=== PATIENT | male | born 1935 ===

== ENCOUNTER 2024-12-24 09:16 | Inpatient (IN) ==
--- NOTE | 2024-10-20 10:13 | PAT Medication Instructions ---
Medication Instructions Date of Service October 20, 2024 Home Medications aspirin 81 mg tablet,delayed release 81 mg PO Q2D cholecalciferol (vitamin D3) 25 mcg (1,000 unit) capsule (Vitamin D3) 0 mcg PO DAILY cyanocobalamin (vitamin B-12) 1,000 mcg tablet (Vitamin B-12) 0 mcg PO DAILY lorazepam 2 mg tablet 2 mg PO HS losartan 25 mg tablet 25 mg PO HS metoprolol succinate 25 mg tablet,extended release 24 hr 12.5 mg PO HS rosuvastatin 10 mg tablet 10 mg PO HS ASK your prescriber and surgeon aspirin 81 mg tablet,delayed release 81 mg PO Q2D DO NOT take the morning of surgery cholecalciferol (vitamin D3) 25 mcg (1,000 unit) capsule (Vitamin D3) 0 mcg PO DAILY cyanocobalamin (vitamin B-12) 1,000 mcg tablet (Vitamin B-12) 0 mcg PO DAILY Take evening before surgery lorazepam 2 mg tablet 2 mg PO HS losartan 25 mg tablet 25 mg PO HS metoprolol succinate 25 mg tablet,extended release 24 hr 12.5 mg PO HS rosuvastatin 10 mg tablet 10 mg PO HS Other Notes NOTHING TO EAT OR DRINK AFTER MIDNIGHT. If you have any questions please call us at [phone] or [phone] or [phone] or [phone]
--- NOTE | 2024-10-30 12:53 | Anesthesiology Consultation ---
Date of Service October 30, 2024 Assessment & Plan (1) Encounter for pre-operative examination: Plan - awaiting surgeon ordered medical clearance, Dr. Carito Freeman [facility] [place] and 11/06/2024 echocardiogram; will request 03/2024 carotid doppler from cardiology. - cardiology office visit 09/15/24: "...functional class II shortness of breath and fatigue...echocardiogram re: MR, TR, CAD, preop for back surgery. Lexiscan nuclear stress test to evaluate for myocardial ischemia..." Subsequent nuclear stress echo 10/01/24: "...negative...no evidence of myocardial ischemia or infarction...cardiac clearance for this patient is moderate cardiac risk..." Chart Review Chart Review: Pending: Refer to Additional Notes / Consult section and Patient seen in Pre Admission Testing Teaching & Discussion Pre-Anesthesia Teaching/Discussion Notes: Instructed NPO after midnight before surgery, except medications with 15 cc of water. Medication instructions provided according to the PAT guidelines. History Surgery Operation Date: 11/21/24 11:35 Proposed Procedures p L4-L5 Decompression and Fusion - Frederic Herrmann DO Height/Weight Height: 5 ft 9.5 in Weight: 84.3 kg Allergies Allergy/AdvReac Type Severity Reaction Status Date / Time No Known Allergies Allergy Verified 10/17/24 09:57 Medications Home Medications Medication Instructions Recorded Confirmed Last Taken aspirin 81 mg tablet,delayed 81 mg PO Q2D 10/17/24 10/17/24 Unknown release cholecalciferol (vitamin D3) 25 0 mcg PO DAILY 10/17/24 10/17/24 Unknown mcg (1,000 unit) capsule (Vitamin D3) cyanocobalamin (vitamin B-12) 0 mcg PO DAILY 10/17/24 10/17/24 Unknown 1,000 mcg tablet (Vitamin B-12) lorazepam 2 mg tablet 2 mg PO HS 10/17/24 10/17/24 Unknown losartan 25 mg tablet 25 mg PO HS 10/17/24 10/17/24 Unknown metoprolol succinate 25 mg 12.5 mg PO HS 10/17/24 10/17/24 Unknown tablet,extended release 24 hr rosuvastatin 10 mg tablet 10 mg PO HS 10/17/24 10/17/24 Unknown Past Medical History Medical History (Updated 10/30/24 @ 14:00 by Ayesha Mckinnon PA-C) CAD (coronary artery disease) s/p 1 stent in 2022 History of anxiety History of myocardial infarction (2022) [facility], hx cath x2 ...tried to dissolve blockage with medication (1st cath) and unsuccessful, went back in and placed stent. HTN (hypertension) borderline Hyperlipidemia borderline Peripheral vascular disease 50-75% moderate peripheral vascular disease of the left distal posterior tibial artery and mild peripheral vascular disease of the legs bilaterally Situational depression hx Spinal stenosis Unsteady gait due to back issue per pt, ambulates with rolling walker Patient denies h/o stroke, seizures, heart failure, DM, blood clots/DVTs or blood transfusions. Exercise / Class Metabolic Activity III < 4 Walking/Shop/Light housework (ambulates with walker, denies chest discomfort or shortness of breath with usual activities) Past Surgical History Surgical History History of appendectomy History of cardiac cath (2022) x2 hx [place] 2022 - [facility]. Stent x1. History of colonoscopy History of femur fracture (2022) [place]/screws-left History of tonsillectomy and adenoidectomy History of tooth extraction teeth removed under local. Past Anesthesia History No Hx of Anesthesia Complications and No Family Hx of Anesthesia Complications History of PONV No Hx of PONV and No Hx of Motion Sickness Social History Smoking Status: Former smoker Do You Dip or Chew Tobacco: No Smoking End Date: 45 yr ago, mostly cigs/ ? brief with pipe. Hx Alcohol Use: Yes alcohol intake frequency: holidays/special occasions only Hx Substance Use: No substance use type: does not use Review of Systems Patient denies chest pain, shortness of breath, dyspnea on exertion, snoring, witnessed apneas, reflux, fever, chills, cough, wheezing, or palpitations. Physical Exam Vital Signs Vitals BP 126/71 P 72 TEMP 97.9 SP02 95% on RA RESP 18 Physical Patient resting comfortably in chair in no acute distress, alert and oriented, responding appropriately throughout visit Full cervical extension range of motion without pain TMD 3.5 finger breadths Mallampati Score 2 Dentition: full upper denture and partial lower denture Lungs: normal respiratory effort. Good air movement, clear throughout to auscultation, no adventitious breath sounds Cardiac: regular rate and rhythm, no murmurs noted Carotid arteries: negative bruit bilat Lab Results Anesthesia Preop Results Results Anesthesia Widget: WBC 6.88 K/ul (4.8-10.8) 10/30/24 Hgb 14.1 g/dl (14.0-18.0) 10/30/24 Hct 40.6 % (42.0-52.0) L 10/30/24 Plt 170 K/uL (130-400) 10/30/24 Na 138 mmol/L (136-145) 10/30/24 K 4.7 mmol/L (3.5-5.1) 10/30/24 Cl 107 mmol/L (98-107) 10/30/24 CO2 24 mmol/L (21-32) 10/30/24 BUN 19 mg/dl (6-23) 10/30/24 Creat 0.93 mg/dl (0.6-1.4) 10/30/24 Glucose Level 112 mg/dl (70-99(Fasting)) H 10/30/24 PT 11.3 Seconds (9.0-12.0) 10/30/24 PTT 28 Seconds (21-31) 10/30/24 INR 1.0 (0.9-1.1) 10/30/24 Urine Color Yellow 10/30/24 Urine Appearance Clear (Clear) 10/30/24 Urine pH 6.0 (4.5-7.5) 10/30/24 Urine Specific Verner 1.008 (1.000-1.030) 10/30/24 Urine Protein Negative (Negative) 10/30/24 Urine Glucose (UA) Negative (Negative) 10/30/24 Urine Ketones Negative (Negative) 10/30/24 Urine Blood Negative (Negative) 10/30/24 Urine Nitrite Negative (Negative) 10/30/24 Urine Bilirubin Negative (Negative) 10/30/24 Urine Urobilinogen Negative (Negative) 10/30/24 Urine Leukocyte Esterase Negative (Negative) 10/30/24 Blood Type O Positive 10/30/24 Antibody Screen NEGATIVE 10/30/24 Testing Electrocardiogram Date: 09/15/24 Sinus rhythm, rate 67 bpm Intra-atrial conduction delay Horizontal axis Anteroseptal infarct Low QRS voltage in precordial leads Slight inferior repolarization disturbance, consider inferior ischemia Unconfirmed report, obtained same day as cardiology office visit Chest X-Ray Date: 10/30/24 No acute chest disease. Stress Test Date: 10/01/24 Negative No evidence of myocardial ischemia or infarction EF 59% Cardiac Catheterization Date: 01/06/22 Left main: minimal luminal irregularities LAD: minimal luminal irregularities LCx: minimal luminal irregularities RCA: 40% mid and distal stenosis Mid RCA 40% stenosed Dist RCA 40% stenosed Ramus 99% stenosed Severe obstructive CAD in the proximal to mid segment of the ramus intermedius along with the middle as well as the inferior branches, with extensive thrombus Nonobstructive CAD of the RCA as evidenced by a negative IFR value Ongoing guideline directed medical therapy, 12 hours IV Aggrastat
[2024-12-24] MEDS: LR 15ML/HR IV SCH (10:15)
[2024-12-24] MEDS: LR 60ML/HR IV SCH (10:16)
[2024-12-24] MEDS: CeleBREX 200 MG CAP PO SCH (10:16)
[2024-12-24] MEDS: GABAPENTIN 300 MG CAP PO SCH (10:16)
[2024-12-24] MEDS: ACETAMINOPHEN 500 MG TAB PO SCH (10:17)
[2024-12-24] MEDS ORDERED: ATROPINE SULFATE 0.1 MG/ML 10ML SYR IV PRN (10:25)
[2024-12-24] MEDS ORDERED: PROMETHAZINE HCL 6.25 MG in SODIUM CHLORIDE 0.9% 50 ML IV PRN (10:25)
[2024-12-24] MEDS ORDERED: HYDROmorphone INJ 1 MG/ML SYRINGE IV PRN ×2 (10:25→15:32)
[2024-12-24] MEDS ORDERED: ONDANSETRON INJ 2 MG/ML 2 ML VIAL IV PRN ×2 (10:25→15:32)
--- NOTE | 2024-12-24 11:23 | History & Physical Bridge Note ---
Date of Service December 24, 2024 History & Physical Bridge Note I have examined the patient, reviewed the History & Physical and in the interval since the performance of the History & Physical I have noted the following changes of clinical significance: no changes noted
--- NOTE | 2024-12-24 11:24 | History & Physical Report ---
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 Allergies Allergy/AdvReac Type Severity Reaction Status Date / Time No Known Allergies Allergy Verified 12/24/24 09:55 Home Medications Medication Instructions Recorded Confirmed Type aspirin 81 mg tablet,delayed 81 mg PO Q2D 10/17/24 12/24/24 History release lorazepam 2 mg tablet (Ativan) 2 mg PO HS 10/17/24 12/24/24 History losartan 25 mg tablet 25 mg PO HS 10/17/24 12/24/24 History metoprolol succinate 25 mg 12.5 mg PO HS 10/17/24 12/24/24 History tablet,extended release 24 hr rosuvastatin 10 mg tablet 10 mg PO HS 10/17/24 12/24/24 History acetaminophen 650 mg 650 mg PO HS PRN Pain 12/19/24 12/24/24 History tablet,extended release (Tylenol Arthritis Pain) cholecalciferol (vitamin D3) 50 50 mcg PO DAILY 12/19/24 12/24/24 History mcg (2,000 unit) capsule (Vitamin D3) denosumab 60 mg/mL subcutaneous 60 mg subcut YEARLY 12/19/24 12/24/24 History syringe (Prolia) vitamin B12 2,500 mcg-folic acid 1 tab PO DAILY 12/19/24 12/24/24 History 400 mcg disintegrating tablet Past Med/Surg History Problem List (Updated 12/24/24 @ 11:24 by Frederic Herrmann DO) 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 Medical History (Updated 12/24/24 @ 11:24 by Frederic Herrmann DO) Hearing loss Bilateral Hearing Aids - "I wear them when I am out" as per patient Lumbar radiculopathy to bilateral lower extremity as per patient Osteoporosis Peripheral vascular disease 50-75% moderate peripheral vascular disease of the left distal posterior tibial artery and mild peripheral vascular disease of the legs bilaterally CAD (coronary artery disease) 1x Stent in 2022 - [facility] - Dr Shanoudy Unsteady gait due to back issue per pt, ambulates with rolling walker or cane History of anxiety hx - regularly follows with psych/Dr Roper as per patient Situational depression hx - regularly follows with psych/Dr Roper as per patient Spinal stenosis History of myocardial infarction (2022) [facility], hx cath x2 ...tried to dissolve blockage with medication (1st cath) and unsuccessful, went back in and placed stent. - [facility] - Dr Alejandre Hyperlipidemia borderline HTN (hypertension) borderline Surgical History History of colonoscopy History of femur fracture (2022) [place]/screws-left History of tooth extraction teeth removed under local History of appendectomy History of tonsillectomy and adenoidectomy History of cardiac cath (2022) x2 hx [place] 2022 - [facility]. Stent x1. - [facility] - Dr Alejandre Social History Smoking Status: Former smoker Tobacco Type: Cigarettes and Pipe Smoking End Date: 45 years ago; Second Hand Exposure: No; Do You Dip or Chew Tobacco: No; Tobacco Cessation Education Requested by Patient: No Hx Alcohol Use: No Hx Substance Use: No Preferred Language: Ukrainian Communication Ability: Effective Plywood Scarfer Tender Required: No Beliefs That Will Affect Care: None Current Living Situation: Alone Other Information That Helps Us Care for You: No Feels Safe at Home: Yes Safety Concerns: Feels Safe At This Time Assistive Devices: Cane, Denture - Upper, Glasses, Hearing Aid - Bilateral, Walker and Other Assistive Devices Comment: Lower partial Physical Exam Physical Exam: Patient is alert and oriented heart regular rhythm Lungs clear Results & Data Results & Data Vital Signs (Past 12 Hours) Vital Signs Temp Pulse Resp BP Pulse Ox O2 Del Method 12/24/24 10:02 36.8 C 70 20 123/68 97 Room Air
[2024-12-24] MEDS: ceFAZolin 2000MG 2,000 MG/15 ML SYR IV SCH ×2 (12:03→21:22)
[2024-12-24] MEDS: ceFAZolin 330 MG/ML 1 GM VIAL ONE (12:55)
[2024-12-24] MEDS: BUPIVACAINE/EPINEPHRINE 0.25% 1:200,000 30 ML VIAL ONE (12:55)
--- NOTE | 2024-12-24 13:54 | Operative Report ---
Post Operative Report Pre & Post Diagnosis Operation Date: 12/24/24 11:05 Pre-Op Diagnosis: #1 lumbar spondylosis with radiculopathy #2 lumbar spondylolisthesis with radiculopathy. #3 lumbar spinal stenosis Post-Op Diagnosis: Same I identified the patient and participated in the time-out.: Yes Procedure Operation Date: 12/24/24 11:05 Actual Procedures #1 lumbar decompression with bilateral medial facetectomies and foraminotomies L3-L4 L4-L5. #2Posterior spinal fusion L4-5 per #3 placed posterior instrumentation L4-5. #4 interbody fusion L4-5 per #5 placement Spira 13 x 26 mm x 2 at L4-5 #6 placement locally harvested morselized autograft posterior gutters. #7 placement infuse collagen sponge combined with Koros in the posterior lateral gutters and os design and interbody space. #8 application of versa wrap over the exposed dura., Surgeon Frederic Herrmann, Snow Fence Erector Kelly Phillips Estimated Blood Loss 100 Findings Consistent with Post-Op Diagnosis Specimens None Indications This is an 89-year-old male who presents with above-mentioned diagnosis of failing since course of nonoperative care and having marked decline in quality of life is here for the above-mentioned surgery. Description of Procedure Patient met with identified informed consent obtained. Patient was then taken to the operative suite underwent patient placed in a prone position on the Duarte table atop the Cheng frame. All bony promises well-padded eyes inspected to ensure no external pressure placed upon them. This point the lumbar spine was prepped and draped in normal sterile fashion. Sharp dissection with the assistance of Bovie cautery was formed down to and exposing the lamina transverse processes of L4-L5. From caudal to cephalad fashion a complete laminectomy of L4 was performed including bilateral medial facetectomies and foraminotomies addressing severe spinal stenosis this is followed by partial laminectomy of L3 with bilateral medial facetectomies to address all spinal stenosis. Pedicle screws were then placed at L4-5 bilaterally with assistance of fluoroscopy in the process [place] placed. By way of transfer approach on the right I discectomy of L4-5 was performed endplates corrected to subcortical bleeding bone and a 13 x 26 mm spiral cage filled with os design bone graft tapped in position. Then proceeded to the left transforaminal region. Again discectomy performed. Endplates guarded to subcortical the bone. A second 13 x 26 mm Spira cage filled with os designed tapped in position. The rods were then compressed locked in final position bilaterally. The transverse processes of L 4 L5 burred to subcortical and bone. Infuse collagen sponge, with Koros and local autograft placed in the posterior gutters. 15 round JAIME drain inserted. Versa wrap placed over the exposed dura. The incision was then closed with 1 Vicryl the fascia 2-0 Vicryl subcutaneously and 4 Monocryl for final skin closure. Steri-Strips sterile dressing placed. Patient waken taken PACU stable condition. Please note spinal cord monitoring was utilized at the procedure no changes noted. Kelly Phillips was present at the entire surgery and while the patient positioning complex portion of the surgery and final skin closure. I attest to the content of the Intraoperative Record and any orders documented therein. Any exceptions are noted below.
--- NOTE | 2024-12-24 14:30 | Anesthesiology Progress Note ---
Date of Service December 24, 2024 Anesthesia Post Procedure Vital Signs Vital Signs: Temp Pulse Pulse Resp BP Pulse Ox O2 Del Method 12/24/24 14:20 68 16 110/55 L 98 Oxymask 12/24/24 14:10 72 12 118/68 97 Oxymask 12/24/24 14:01 36.1 C L 72 12 115/63 97 Oxymask 12/24/24 10:02 36.8 C 70 20 123/68 97 Room Air O2 Flow Rate 12/24/24 14:20 5 12/24/24 14:10 5 12/24/24 14:01 5 12/24/24 10:02 Pain Intensity Lower Back: Pain Intensity: 8 Transfer of Care Handoff Completed per policy Notes Mental Status: alert / awake / arousable and participated in evaluation Nausea / Vomiting: adequately controlled Pain: adequately controlled Airway Patency, RR, SpO2: stable & adequate BP & HR: stable & adequate Hydration State: stable & adequate Anesthetic Complications: no major complications apparent and Pt Satisfied with anesthetic care
--- NOTE | 2024-12-24 14:54 | Fluoroscopy Report ---
FL lumbar spine 2-3V CLINICAL HISTORY: L4-L5 DECOMPRESSION AND FUSION COMPARISON STUDY: None FLUOROSCOPY TIME: 17 seconds FLUOROSCOPY IMAGES: 3 EXPOSURE DOSE: 15 mGy FINDINGS: Fluoroscopy was provided for lower lumbar fusion. IMPRESSION: Intraoperative fluoroscopy. ACT 112: Negative or not required by law. Electronically signed by: Curtis Romero M.D. 12/24/2024 2:53 PM
[2024-12-24] MEDS ORDERED: ACETAMINOPHEN 1,000 MG/100 ML VIAL IV PRN (15:32)
[2024-12-24] MEDS ORDERED: ALUMINUM/MAGNESIUM SUSP 30 ML UDC PO PRN (15:32)
[2024-12-24] MEDS ORDERED: ONDANSETRON 4 MG OD TAB PO PRN (15:32)
[2024-12-24] MEDS ORDERED: LORazepam 2 MG/1 ML VIAL IV PRN (15:32)
[2024-12-24] MEDS ORDERED: SOD PHOSPHATE/SOD BIPHOSPHATE ENEMA 132 ML BTL PR PRN (15:32)
[2024-12-24] MEDS ORDERED: traMADol HCL 50 MG TABLET PO PRN (15:32)
[2024-12-24] MEDS ORDERED: NALOXONE HCL 0.4 MG/1 ML VIAL/CARP IV PRN (15:32)
[2024-12-24] MEDS ORDERED: hydrOXYzine HCl 25 MG TAB PO PRN (15:32)
[2024-12-24] MEDS ORDERED: DO NOT ADMINISTER PNEUMOCOCCAL VACCINE PRN (15:32)
[2024-12-24] MEDS ORDERED: METOCLOPRAMIDE HCL INJ 5 MG/ML 2 ML VIAL IV PRN (15:32)
[2024-12-24] MEDS ORDERED: LORazepam 0.5 MG TAB PO PRN (15:32)
[2024-12-24] MEDS ORDERED: FAMOTIDINE 20 MG TAB PO PRN (15:32)
[2024-12-24] MEDS ORDERED: bisacodyL 10 MG SUPP PR PRN (15:32)
[2024-12-24] MEDS ORDERED: DO NOT ADMINISTER FLU VACCINE PRN (15:32)
[2024-12-24] MEDS ORDERED: oxyCODONE HCL IR 5 MG TAB (IMMEDIATE RELEASE) PO PRN (15:32)
[2024-12-24] MEDS ORDERED: diphenhydrAMINE Capsule 25 MG CAP PO PRN (15:32)
[2024-12-24] MEDS ORDERED: HYDROmorphone INJ 0.5 MG/0.5 ML SYR IV PRN (15:32)
[2024-12-24] MEDS ORDERED: PROMETHAZINE 12.5 MG/50.5 ML BAG IV PRN (15:32)
[2024-12-24] MEDS ORDERED: MAGNESIUM HYDROXIDE SUSP 30 ML UDC PO PRN (15:32)
[2024-12-24] MEDS: FLOSEAL HEMOSTATIC MATRIX 10ML TOP ONE (15:48)
--- NOTE | 2024-12-24 16:16 | Consultation ---
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 Herrmann. #Lumbar spinal stenosis with neurogenic claudication #S/P L4-L5 lumbar decompression fusion POD #0 EBL: 100 ml pain/wound management per ortho activity/therapy per ortho encourage incentive spirometry monitor post operative hgb, was 14.1 pre op #CAD with hx of Stent #HTN #HLD on asa, losartan, metoprolol and statin as outpt will hold losartan in perioperative period, resume as soon as able chronic, stable DVT ppx: SCDS PCP: Carito Freeman FULL CODE Dispo: per primary Thank you for this consultation. We will follow the patient with you during their hospital stay. You can reach a member of the [facility] Hospitalist Team 21/05 via hospitalist role on tiger text. I spent a total of 40 minutes coordinating, documenting and providing care for this patient excluding time spent in the performance of separately billed services or time spent by another provider/QHP. Pt was seen and examined in collaboration with Dr. Ashby, please see addednum Supervising Physician Co-Signing Physician Notes pt was seen and examined at bedside s/p lumbar sx. Pt reports improvement in ble radicular s/s, reports operative site pain under control. A&P, EXam as above. I have seen and examined the patient and have discussed the case with the provider above. I agree with the assessment and plan as stated. Time spent separately: 10 min. History of Present Illness Requesting Physician: Dr. Herrmann Reason for Consultation: Post op medical management Attending Physician: Frederic Herrmann, DO History of Present Illness This is an 89 yr old M who has a significant PMH of CAD with hx of stent in 2022, HTN, Mitral valve insufficiency, GERD, Depression who presents to elective lumbar procedure by Dr. Herrmann. Pt outpt scanned in reports were reviewed. He follows [facility]. He underwent pre op echocardiogram which showed normal EF 55-60%, mild AI, mild AL and no diastolic dysfunction. Today he underwent an L4-L5 decompression/fusion and tolerated the procedure well. Post operatively he offers no complaints. He reports mild incisional tenderness but denies radicular sx. He denies f/c/s, chest pain, sob, n/v/d. He lives by himself and walks with a walker. He said his son who is a retired [employer] marshal lives right down the street and is always checking on him. He is able to perform his IADLS and ADLS independently. Prior to surg pt had difficulty walking as well as pain in lower ext. He denies any issues moving bowels or passing urine. Allergies Allergy/AdvReac Type Severity Reaction Status Date / Time No Known Allergies Allergy Verified 12/24/24 09:55 Home Medications Medication Instructions Recorded Confirmed Type aspirin 81 mg tablet,delayed 81 mg PO Q2D 10/17/24 12/24/24 History release lorazepam 2 mg tablet (Ativan) 2 mg PO HS 10/17/24 12/24/24 History losartan 25 mg tablet 25 mg PO HS 10/17/24 12/24/24 History metoprolol succinate 25 mg 12.5 mg PO HS 10/17/24 12/24/24 History tablet,extended release 24 hr rosuvastatin 10 mg tablet 10 mg PO HS 10/17/24 12/24/24 History acetaminophen 650 mg 650 mg PO HS PRN Pain 12/19/24 12/24/24 History tablet,extended release (Tylenol Arthritis Pain) cholecalciferol (vitamin D3) 50 50 mcg PO DAILY 12/19/24 12/24/24 History mcg (2,000 unit) capsule (Vitamin D3) denosumab 60 mg/mL subcutaneous 60 mg subcut YEARLY 12/19/24 12/24/24 History syringe (Prolia) vitamin B12 2,500 mcg-folic acid 1 tab PO DAILY 12/19/24 12/24/24 History 400 mcg disintegrating tablet Patient History Medical History Hearing loss Bilateral Hearing Aids - "I wear them when I am out" as per patient Lumbar radiculopathy to bilateral lower extremity as per patient Osteoporosis Peripheral vascular disease 50-75% moderate peripheral vascular disease of the left distal posterior tibial artery and mild peripheral vascular disease of the legs bilaterally CAD (coronary artery disease) 1x Stent in 2022 - [facility] - Dr Alejandre Unsteady gait due to back issue per pt, ambulates with rolling walker or cane History of anxiety hx - regularly follows with psych/Dr Roper as per patient Situational depression hx - regularly follows with psych/Dr Roper as per patient Spinal stenosis History of myocardial infarction (2022) [facility], hx cath x2 ...tried to dissolve blockage with medication (1st cath) and unsuccessful, went back in and placed stent. - [facility] - Dr Alejandre Hyperlipidemia borderline HTN (hypertension) borderline Surgical History History of colonoscopy History of femur fracture (2022) [place]/screws-left History of tooth extraction teeth removed under local History of appendectomy History of tonsillectomy and adenoidectomy History of cardiac cath (2022) x2 hx [place] 2022 - [facility]. Stent x1. - [facility] - Dr Alejandre Social History Smoking Status: Former smoker Tobacco Type: Cigarettes and Pipe Smoking End Date: 45 years ago; Second Hand Exposure: No; Do You Dip or Chew Tobacco: No; Tobacco Cessation Education Requested by Patient: No Hx Alcohol Use: No Hx Substance Use: No Preferred Language: Occitan Communication Ability: Effective Gum Worker Required: No Beliefs That Will Affect Care: None Current Living Situation: Alone Other Information That Helps Us Care for You: No Feels Safe at Home: Yes Safety Concerns: Feels Safe At This Time Assistive Devices: Cane and Walker Assistive Devices Comment: Lower partial Review of Systems Review of Systems: All systems reviewed & are unremarkable except as noted in HPI & below Physical Exam Physical Exam: Constitutional: WD/WN, vitals as above, NAD, sitting up in bed, pleasant, conversing easily Head: Normocephalic, Atraumatic Eyes: PERRL, conjunctivae normal, anicteric sclerae ENMT: external ear and nose normal, oropharynx normal Neck: trachea midline, no thyromegaly normal visual inspection Respiratory: normal respiratory effort, lungs clear to auscultation, no wheeze, rales, rhonchi. Normal insp/exp effort, no accessory muscle use Cardiovascular: RRR, no murmur, no edema Vessels: no JVD or carotid bruit Chest: normal inspection of chest Abdomen: normal bowel sounds, soft, nontender, no hepatosplenomegaly Musculoskeletal: no cyanosis or clubbing, extremities motor strength 5/5 Skin: no rashes, warm and dry normal turgor Neurologic: PERRL, EOMI, accommodation nl, no face palsy, no dysarthria CN's II-XI intact bilaterally and moves all extremities Psychiatric: A+Ox3, euthymic affect Lymphatic: no cervical or axillary lymphadenopathy : deferred Results & Data Vital Signs (Past 12 Hours) Vital Signs Temp Pulse Pulse Resp BP Pulse Ox O2 Del Method 12/24/24 15:25 36.4 C L 64 18 117/63 96 Room Air 12/24/24 15:10 66 17 112/60 94 Room Air 12/24/24 14:55 60 18 107/63 95 Room Air 12/24/24 14:40 36.5 C 62 18 111/57 L 95 Room Air 12/24/24 14:30 66 19 111/59 L 94 Room Air 12/24/24 14:20 68 16 110/55 L 98 Oxymask 12/24/24 14:10 72 12 118/68 97 Oxymask 12/24/24 14:01 36.1 C L 72 12 115/63 97 Oxymask 12/24/24 10:02 36.8 C 70 20 123/68 97 Room Air O2 Flow Rate 12/24/24 15:25 12/24/24 15:10 12/24/24 14:55 12/24/24 14:40 12/24/24 14:30 12/24/24 14:20 5 12/24/24 14:10 5 12/24/24 14:01 5 12/24/24 10:02 Laboratory Results I have independently reviewed and interpreted patient's admitting labs including CBC, BMP, UA Diagnostic Findings Lumbar Spine X-Ray 12/24/24 11:05 FL lumbar spine 2-3V CLINICAL HISTORY: L4-L5 DECOMPRESSION AND FUSION COMPARISON STUDY: None FLUOROSCOPY TIME: 17 seconds FLUOROSCOPY IMAGES: 3 EXPOSURE DOSE: 15 mGy FINDINGS: Fluoroscopy was provided for lower lumbar fusion. IMPRESSION: Intraoperative fluoroscopy. ACT 112: Negative or not required by law. Electronically signed by: Curtis Romero M.D. 12/24/2024 2:53 PM Medications Administered Current Inpatient Medications Acetaminophen (Acetaminophen 500 Mg Tab) 1,000 mg PO PREOP CRISTIAN Stop: 12/24/24 18:00 Last Admin: 12/24/24 10:17 Dose: 1,000 mg Acetaminophen (Acetaminophen 500 Mg Tab) 1,000 mg PO Q8H PRN PRN Reason: MILD Pain Scale 1,2,3 & Pre PT Stop: 01/23/25 15:31 Al Hydrox/Mg Hydrox/Simethicone (Aluminum/Magnesium Susp 30 Ml Udc) 30 ml PO Q6H PRN PRN Reason: Dyspepsia Stop: 01/23/25 15:31 Aspirin (Aspirin 81 Mg Ectab) 81 mg PO Q2D@0900 CRISTIAN Stop: 01/24/25 08:59 Atropine Sulfate (Atropine Sulfate 0.1 Mg/Ml 10ml Syr) 0.5 mg IV Q1M PRN PRN Reason: PACU Use-HR<40 &/or Bradycardi Stop: 12/24/24 18:25 Bisacodyl (Bisacodyl 10 Mg Supp) 10 mg NV DAILY PRN PRN Reason: Constipation Stop: 01/23/25 15:31 Celecoxib (Celebrex 200 Mg Cap) 200 mg PO PREOP CRISTIAN Stop: 12/24/24 18:00 Last Admin: 12/24/24 10:16 Dose: 200 mg Cyanocobalamin (Cyanocobalamin (B-12) 2,500 Mcg Tablet) 2,500 mcg PO DAILY CRISTIAN Stop: 01/24/25 08:59 Diphenhydramine HCl (Diphenhydramine Capsule 25 Mg Cap) 25 mg PO Q6H PRN PRN Reason: Allergic Rhinitis/Insomnia Stop: 01/23/25 15:31 Famotidine (Famotidine 20 Mg Tab) 20 mg PO Q12H PRN PRN Reason: Dyspepsia Stop: 01/23/25 15:31 Folic Acid (Folic Acid 400 Mcg Tab) 400 mcg PO DAILY CRISTIAN Stop: 01/24/25 08:59 Gabapentin (Gabapentin 300 Mg Cap) 300 mg PO PREOP CRISTIAN Stop: 12/24/24 18:00 Last Admin: 12/24/24 10:16 Dose: 300 mg Hydromorphone HCl (Hydromorphone Inj 1 Mg/Ml Syringe) 0.25 mg IV Q5M PRN PRN Reason: PACU Use Only-Pain Stop: 12/24/24 18:25 Hydromorphone HCl (Hydromorphone Inj 0.5 Mg/0.5 Ml Syr) 0.5 mg IV Q3H PRN PRN Reason: MODERATE Pain (Scale 4,5,6) & Pre PT Stop: 01/07/25 15:31 Hydromorphone HCl (Hydromorphone Inj 1 Mg/Ml Syringe) 1 mg IV Q3H PRN PRN Reason: SEVERE Pain (Scale 7,8,9,10) Stop: 01/07/25 15:31 Hydroxyzine HCl (Hydroxyzine Hcl 25 Mg Tab) 25 mg PO Q8H PRN PRN Reason: Anxiety Stop: 01/23/25 15:31 Lactated Ringer's (Lr) 1,000 mls @ 15 mls/hr IV .Q24H CRISTIAN Stop: 12/25/24 05:59 Last Infusion: 12/24/24 11:59 Dose: Infused Lactated Ringer's (Lr) 1,000 mls @ 60 mls/hr IV .[id number] CRISTIAN Stop: 12/24/24 22:39 Last Admin: 12/24/24 10:16 Dose: Not Given Cefazolin Sodium (Ancef 2000mg) 2,000 mg in 15 mls @ 3.75 mls/min IV PREOP CRISTIAN; Protocol Stop: 12/24/24 18:00 Last Admin: 12/24/24 12:03 Dose: 3.75 mls/min Promethazine HCl 6.25 mg/ (Sodium Chloride) 50.25 mls @ 204 mls/hr IV ONCE PRN PRN Reason: PACU Use Only-Nausea/Vomiting Stop: 12/24/24 18:25 Acetaminophen (Ofirmev) 1,000 mg in 100 mls @ 400 mls/hr IV Q8H PRN PRN Reason: Pain Rating 1-3 & Pre PT Stop: 12/25/24 15:33 Cefazolin Sodium (Ancef 2000mg) 2,000 mg in 15 mls @ 3.75 mls/min IV Q8H CRISTIAN; Protocol Stop: 12/25/24 04:03 Promethazine HCl (Phenergan) 12.5 mg in 50.5 mls @ 202 mls/hr IV Q6H PRN PRN Reason: Nausea And Vomiting Stop: 01/23/25 15:31 Dexamethasone 4 mg/ Syringe 1 mls @ 1 mls/min IV DAILY CRISTIAN Stop: 12/27/24 09:02 Influenza Virus Vaccine Quadrival (Do Not Administer Flu Vaccine) 1 each N/A PRN PRN PRN Reason: Notification Stop: 01/23/25 15:31 Lorazepam (Lorazepam 1 Mg Tab) 2 mg PO HS CRISTIAN Stop: 01/23/25 20:59 Lorazepam (Lorazepam 0.5 Mg Tab) 0.5 mg PO Q8H PRN PRN Reason: Sedation/Anxiety Stop: 01/23/25 15:31 Lorazepam (Lorazepam 2 Mg/1 Ml Vial) 0.5 mg IV Q8H PRN PRN Reason: Sedation/Anxiety Stop: 01/23/25 15:31 Losartan Potassium (Losartan Potassium 25 Mg Tab) 25 mg PO HS [facility] Stop: 01/23/25 20:59 Magnesium Hydroxide (Magnesium Hydroxide Susp 30 Ml Udc) 30 ml PO Q24H PRN PRN Reason: Constipation Stop: 01/23/25 15:31 Metoclopramide HCl (Metoclopramide Hcl Inj 5 Mg/Ml 2 Ml Vial) 10 mg IV Q6H PRN PRN Reason: Nausea &/or Vomiting Stop: 01/23/25 15:31 Metoprolol Succinate (Metoprolol Succ 25mg Ext Rel Tab) 12.5 mg PO HS [facility] Stop: 01/23/25 20:59 Naloxone HCl (Naloxone Hcl 0.4 Mg/1 Ml Vial/Carp) 0.1 mg IV Q5M PRN PRN Reason: Oversedation/Resp depression Stop: 01/23/25 15:31 Ondansetron HCl (Ondansetron Inj 2 Mg/Ml 2 Ml Vial) 4 mg IV ONCE PRN PRN Reason: PACU Use Only-Nausea/Vomiting Stop: 12/24/24 18:25 Ondansetron HCl (Ondansetron Inj 2 Mg/Ml 2 Ml Vial) 4 mg IV Q6H PRN PRN Reason: Nausea &/or Vomiting Stop: 01/23/25 15:31 Ondansetron HCl (Ondansetron 4 Mg Od Tab) 4 mg PO Q6H PRN PRN Reason: Nausea Stop: 01/23/25 15:31 Oxycodone HCl (Oxycodone Hcl Ir 5 Mg Tab (Immediate Release)) 5 - 10 mg PO Q4H PRN PRN Reason: Pain & Pre PT Stop: 01/07/25 15:31 Pneumococcal Polyvalent Vaccine (Do Not Administer Pneumococcal Vaccine) 1 each N/A PRN PRN PRN Reason: Notification Stop: 01/23/25 15:31 Polyethylene Glycol (Polyethylene (Miralax) 17 Gm Pack) 17 gm PO Q6 CRISTIAN Stop: 01/24/25 05:59 Rosuvastatin Calcium (Rosuvastatin Calcium 10 Mg Tab) 10 mg PO HS CRISTIAN Stop: 01/23/25 20:59 Senna/Docusate Sodium (Docusate Sodium/Senna 50/8.6mg Tab) 2 tab PO HS CRISTIAN Stop: 01/23/25 20:59 Sodium Biphosphate/Sodium Phosphate (Sod Phosphate/Sod Biphosphate Enema 132 Ml Btl) 132 ml NV ONE PRN PRN Reason: Constipation Stop: 01/23/25 15:31 Tramadol HCl (Tramadol Hcl 50 Mg Tablet) 50 - 100 mg PO Q4H PRN PRN Reason: Moderate-Severe pain & Pre PT Stop: 01/23/25 15:31 Vitamin D (Cholecalciferol 25 Mcg (1000 Units) Tab) 50 mcg PO DAILY CRISTIAN Stop: 01/24/25 08:59 ECG Additional Comments: I have independently reviewed and interpreted patient's admitting EKG which revealed: NSR, 67 bpm, no st or t wave change
[2024-12-24] MEDS: ACETAMINOPHEN 500 MG TAB PO PRN (20:12)
[2024-12-24] MEDS ORDERED: LOSARTAN POTASSIUM 25 MG TAB PO SCH (21:00)
[2024-12-24] MEDS: DOCUSATE SODIUM/SENNA 50/8.6MG TAB PO SCH (21:22)
[2024-12-24] MEDS: METOPROLOL SUCC 25MG EXT REL TAB PO SCH (21:23)
[2024-12-24] MEDS: ROSUVASTATIN CALCIUM 10 MG TAB PO SCH (21:24)
[2024-12-24] MEDS: LORazepam 1 MG TAB PO SCH (21:29)
[2024-12-25] MEDS: POLYETHYLENE (MIRALAX) 17 GM PACK PO SCH (05:06)
[2024-12-25 07:11] LABS: Basophils # (auto) 0.01 K/uL (0.00-0.20); Basophils % (auto) 0.1 %; Hematocrit (blood only) 32.1 % (42.0-52.0); Hemoglobin 10.9 g/dl (14.0-18.0); Immature Granulocytes % (auto) 0.8 %; Lymphocytes # (auto) 1.44 K/uL (1.20-3.40); Lymphocytes % (auto) 11.5 %; Mean Corpuscular Volume 97.3 fL (80.0-100.0); Mean Platelet Volume 10.6 fL (9.4-12.4); Monocytes # (auto) 0.76 K/uL (0.11-0.59); Monocytes % (auto) 6.1 %; Neutrophils # (auto) 10.19 K/uL (1.40-6.50); Neutrophils % (auto) 81.5 %; Platelet Count 138 K/uL (130-400); RDW Coefficient of Variation 12.6 % (11.5-14.5); RDW Standard Deviation 44.9 fL (36.4-46.3)
[2024-12-25 07:24] LABS: BUN Creatinine Ratio 21.3 (10-20); Calcium 7.6 mg/dl (8.6-10.3); Creatinine Clr Calc Pharmacy 63.8 ml/min; Potassium 4.2 mmol/L (3.5-5.1)
[2024-12-25] MEDS: CHOLECALCIFEROL 25 MCG (1000 UNITS) TAB PO SCH (08:07)
[2024-12-25] MEDS: dexAMETHasone 4 MG in SYRINGE 0 ML IV SCH (08:07)
[2024-12-25] MEDS: ASPIRIN 81 MG ECTAB PO SCH (08:07)
[2024-12-25] MEDS: CYANOCOBALAMIN (B-12) 2,500 MCG TABLET PO SCH (08:07)
[2024-12-25] MEDS: FOLIC ACID 400 MCG TAB PO SCH (08:07)
[2024-12-25] MEDS ORDERED: CYANOCOBALAMIN (B-12) 2,500 MCG TABLET PO SCH (09:00)
--- NOTE | 2024-12-25 10:05 | Orthopedic Progress Note ---
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 He will require home health with home PT. Admission and Anticipated Discharge Date Admission Date: December 24, 2024 Subjective Patient's back pain is controlled leg symptoms markedly improved. Physical Exam Physical Exam: Patient is in the chair at the bedside. Is comfortable where he does consent to testing. Results & Data Vital Signs (Past 12 Hours) Vital Signs Temp Pulse Resp BP Pulse Ox O2 Del Method 12/25/24 07:05 36.5 C 61 16 100/56 L 95 Room Air 12/25/24 03:21 36.5 C 65 16 119/75 95 Room Air 12/24/24 23:04 36.6 C 69 18 95/59 L 93 Room Air Queries Orthopedic Spine Acute Posthemorrhagic Anemia: Yes
--- NOTE | 2024-12-25 11:21 | Hospitalist Progress Note ---
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 Herrmann. #Lumbar spinal stenosis with neurogenic claudication #S/P L4-L5 lumbar decompression fusion POD #1 EBL: 100 ml pain/wound management per ortho activity/therapy per ortho encourage incentive spirometry #Acute blood loss anemia 2/2 post op losses monitor post operative hgb, was 14.1 pre op hgb 10.9 iso IVF and expected blood loss trend cbc #post nasal drip start flonase #CAD with hx of Stent #HTN #HLD on asa, losartan, metoprolol and statin as outpt will hold losartan in perioperative period, resume as soon as able chronic, stable DVT ppx: SCDS PCP: Carito Freeman FULL CODE Dispo: per primary Thank you for this consultation. We will follow the patient with you during their hospital stay. You can reach a member of the [facility] Hospitalist Team 21/05 via hospitalist role on tiger text. I spent a total of 45 minutes coordinating, documenting and providing care for this patient excluding time spent in the performance of separately billed services or time spent by another provider/QHP. Admission and Anticipated Discharge Date Admission Date: December 24, 2024 Subjective reports feeling great this am, endorses happiness with ambulating the hallways Denies any chest pain, sob, or new acute symptoms reports chronic cough and itching throat, would like to trial flonase reports resolution of radicular symptoms present preoperatively Physical Exam Constitutional: WD/WN, vitals as above Respiratory: normal respiratory effort, lungs clear to auscultation Cardiovascular: RRR, no murmur, no edema Musculoskeletal: no cyanosis or clubbing, extremities motor strength 5/5 Results & Data Results & Data Vital Signs (Past 12 Hours) Vital Signs Temp Pulse Resp BP Pulse Ox O2 Del Method 12/25/24 07:05 36.5 C 61 16 100/56 L 95 Room Air 12/25/24 03:21 36.5 C 65 16 119/75 95 Room Air Laboratory Results Short CBC 12/25/24 Range/Units 06:37 WBC 12.50 H (4.8-10.8) K/ul Hgb 10.9 L (14.0-18.0) g/dl Hct 32.1 L (42.0-52.0) % Plt Count 138 (130-400) K/uL BMP 12/25/24 06:37 Sodium 140 Potassium 4.2 Chloride 109 H Carbon Dioxide 23 BUN 17 Creatinine 0.80 Glucose 131 H Calcium 7.6 L Medications Administered Home Medications Medication Instructions Recorded Confirmed Last Taken aspirin 81 mg tablet,delayed 81 mg PO Q2D 10/17/24 12/24/24 12/22/24 21:00 release lorazepam 2 mg tablet (Ativan) 2 mg PO HS 10/17/24 12/24/24 12/23/24 21:00 losartan 25 mg tablet 25 mg PO HS 10/17/24 12/24/24 12/23/24 21:00 metoprolol succinate 25 mg 12.5 mg PO HS 10/17/24 12/24/24 12/23/24 21:00 tablet,extended release 24 hr rosuvastatin 10 mg tablet 10 mg PO HS 10/17/24 12/24/24 12/23/24 21:00 acetaminophen 650 mg 650 mg PO HS PRN Pain 12/19/24 12/24/24 12/23/24 21:00 tablet,extended release (Tylenol Arthritis Pain) cholecalciferol (vitamin D3) 50 50 mcg PO DAILY 12/19/24 12/24/24 12/23/24 21:00 mcg (2,000 unit) capsule (Vitamin D3) denosumab 60 mg/mL subcutaneous 60 mg subcut YEARLY 12/19/24 12/24/24 09/29/24 10:00 syringe (Prolia) vitamin B12 2,500 mcg-folic acid 1 tab PO DAILY 12/19/24 12/24/24 12/23/24 09:00 400 mcg disintegrating tablet Active Medications Generic Name Dose Route Start Last Admin Trade Name Freq PRN Reason Stop Dose Admin Acetaminophen 1,000 mg 12/24/24 15:32 12/25/24 08:06 Acetaminophen 500 Mg Tab PO 01/23/25 15:31 1,000 mg Q8H PRN Administration MILD Pain Scale 1,2,3 & Pre PT Aspirin 81 mg 12/25/24 09:00 12/25/24 08:07 Aspirin 81 Mg Ectab PO 01/24/25 08:59 81 mg Q2D@0900 CRISTIAN Administration Cyanocobalamin 2,500 mcg 12/25/24 09:00 12/25/24 08:07 Cyanocobalamin (B-12) 2,500 Mcg Tablet PO 01/24/25 08:59 2,500 mcg DAILY CRISTIAN Administration Fluticasone Propionate 1 sprays 12/25/24 09:45 12/25/24 11:42 Fluticasone Propionate Na Spr 16 Gm Btl NA 01/24/25 09:44 1 sprays DAILY CRISTIAN Administration Folic Acid 400 mcg 12/25/24 09:00 12/25/24 08:07 Folic Acid 400 Mcg Tab PO 01/24/25 08:59 400 mcg DAILY CRISTIAN Administration Dexamethasone 4 mg/ Syringe 1 mls @ 1 mls/min 12/25/24 09:00 12/25/24 08:07 IV 12/27/24 09:02 1 mls/min DAILY CRISTIAN Administration Lorazepam 2 mg 12/24/24 21:00 12/24/24 21:29 Lorazepam 1 Mg Tab PO 01/23/25 20:59 2 mg HS CRISTIAN Administration Metoprolol Succinate 12.5 mg 12/24/24 21:00 12/24/24 21:23 Metoprolol Succ 25mg Ext Rel Tab PO 01/23/25 20:59 12.5 mg HS CRISTIAN Administration Polyethylene Glycol 17 gm 12/25/24 06:00 12/25/24 11:43 Polyethylene (Miralax) 17 Gm Pack PO 01/24/25 05:59 Not Given Q6 CRISTIAN Rosuvastatin Calcium 10 mg 12/24/24 21:00 12/24/24 21:24 Rosuvastatin Calcium 10 Mg Tab PO 01/23/25 20:59 10 mg HS CRISTIAN Administration Senna/Docusate Sodium 2 tab 12/24/24 21:00 12/24/24 21:22 Docusate Sodium/Senna 50/8.6mg Tab PO 01/23/25 20:59 2 tab HS CRISTIAN Administration Vitamin D 50 mcg 12/25/24 09:00 12/25/24 08:07 Cholecalciferol 25 Mcg (1000 Units) Tab PO 01/24/25 08:59 50 mcg DAILY CRISTIAN Administration
[2024-12-25] MEDS: FLUTICASONE PROPIONATE NA SPR 16 GM BTL SCH (11:42)
[2024-12-26 09:13] LABS: Hematocrit (blood only) 34.3 % (42.0-52.0); Hemoglobin 11.7 g/dl (14.0-18.0); Mean Corpuscular Hemoglobin 33.2 pg (25.0-34.0); Mean Corpuscular Hgb Conc 34.1 g/dL (32.0-36.0); Mean Corpuscular Volume 97.4 fL (80.0-100.0); Mean Platelet Volume 10.4 fL (9.4-12.4); Platelet Count 156 K/uL (130-400); RDW Coefficient of Variation 13.1 % (11.5-14.5); Red Blood Count 3.52 M/uL (4.70-6.10); White Blood Count 13.62 K/ul (4.8-10.8)
--- NOTE | 2024-12-26 10:10 | Orthopedic Progress Note ---
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 Admission and Anticipated Discharge Date Admission Date: December 24, 2024 Subjective Patient's pain is controlled. Leg symptoms markedly improved. He is tolerating physical therapy. Physical Exam Physical Exam: Patient is in the chair at the bedside. Skin strength testing. She comfortable. Results & Data Vital Signs (Past 12 Hours) Vital Signs Temp Pulse Resp BP Pulse Ox O2 Del Method 12/26/24 07:22 36.4 C L 61 18 110/59 L 97 Room Air Queries Orthopedic Spine Acute Posthemorrhagic Anemia: Yes
--- NOTE | 2024-12-26 15:39 | Hospitalist Progress Note ---
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 Herrmann. #Lumbar spinal stenosis with neurogenic claudication #S/P L4-L5 lumbar decompression fusion POD #2 EBL: 100 ml pain/wound management per ortho activity/therapy per ortho encourage incentive spirometry #Acute blood loss anemia 2/2 post op losses monitor post operative hgb, was 14.1 pre op stable at 11.7, no need for further labs #post nasal drip continue flonase #CAD with hx of Stent #HTN #HLD on asa, losartan, metoprolol and statin as outpt will hold losartan in perioperative period, resume as soon as able chronic, stable DVT ppx: SCDS PCP: Carito Freeman FULL CODE Dispo: per primary Thank you for this consultation. We will follow the patient with you during their hospital stay. You can reach a member of the [facility] Hospitalist Team 21/05 via hospitalist role on tiger text. I spent a total of 30 minutes coordinating, documenting and providing care for this patient excluding time spent in the performance of separately billed services or time spent by another provider/QHP. Admission and Anticipated Discharge Date Admission Date: December 24, 2024 Subjective NAEO reports feeling well overall no acute concerns, patient reports notable improvement in post nasal symptoms Physical Exam Constitutional: WD/WN, vitals as above Respiratory: normal respiratory effort, lungs clear to auscultation Cardiovascular: RRR, no murmur, no edema Gastrointestinal (Abdomen): normal bowel sounds, soft, nontender, no hepatosplenomegaly Results & Data Results & Data Vital Signs (Past 12 Hours) Vital Signs Temp Pulse Resp BP Pulse Ox O2 Del Method 12/26/24 15:17 36.4 C L 57 L 16 108/64 98 Room Air 12/26/24 07:22 36.4 C L 61 18 110/59 L 97 Room Air Laboratory Results Short CBC 12/26/24 Range/Units 08:33 WBC 13.62 H (4.8-10.8) K/ul Hgb 11.7 L (14.0-18.0) g/dl Hct 34.3 L (42.0-52.0) % Plt Count 156 (130-400) K/uL Medications Administered Home Medications Medication Instructions Recorded Confirmed Last Taken aspirin 81 mg tablet,delayed 81 mg PO Q2D 10/17/24 12/24/24 12/22/24 21:00 release lorazepam 2 mg tablet (Ativan) 2 mg PO HS 10/17/24 12/24/24 12/23/24 21:00 losartan 25 mg tablet 25 mg PO HS 10/17/24 12/24/24 12/23/24 21:00 metoprolol succinate 25 mg 12.5 mg PO HS 10/17/24 12/24/24 12/23/24 21:00 tablet,extended release 24 hr rosuvastatin 10 mg tablet 10 mg PO HS 10/17/24 12/24/24 12/23/24 21:00 acetaminophen 650 mg 650 mg PO HS PRN Pain 12/19/24 12/24/24 12/23/24 21:00 tablet,extended release (Tylenol Arthritis Pain) cholecalciferol (vitamin D3) 50 50 mcg PO DAILY 12/19/24 12/24/24 12/23/24 21:00 mcg (2,000 unit) capsule (Vitamin D3) denosumab 60 mg/mL subcutaneous 60 mg subcut YEARLY 12/19/24 12/24/24 09/29/24 10:00 syringe (Prolia) vitamin B12 2,500 mcg-folic acid 1 tab PO DAILY 12/19/24 12/24/24 12/23/24 09:00 400 mcg disintegrating tablet Active Medications Generic Name Dose Route Start Last Admin Trade Name Freq PRN Reason Stop Dose Admin Acetaminophen 1,000 mg 12/24/24 15:32 12/26/24 13:08 Acetaminophen 500 Mg Tab PO 01/23/25 15:31 1,000 mg Q8H PRN Administration MILD Pain Scale 1,2,3 & Pre PT Aspirin 81 mg 12/25/24 09:00 12/25/24 08:07 Aspirin 81 Mg Ectab PO 01/24/25 08:59 81 mg Q2D@0900 CRISTIAN Administration Cyanocobalamin 2,500 mcg 12/25/24 09:00 12/26/24 07:40 Cyanocobalamin (B-12) 2,500 Mcg Tablet PO 01/24/25 08:59 2,500 mcg DAILY CRISTIAN Administration Fluticasone Propionate 1 sprays 12/25/24 09:45 12/26/24 07:40 Fluticasone Propionate Na Spr 16 Gm Btl NA 01/24/25 09:44 1 sprays DAILY CRISTIAN Administration Folic Acid 400 mcg 12/25/24 09:00 12/26/24 07:41 Folic Acid 400 Mcg Tab PO 01/24/25 08:59 400 mcg DAILY CRISTIAN Administration Dexamethasone 4 mg/ Syringe 1 mls @ 1 mls/min 12/25/24 09:00 12/26/24 07:40 IV 12/27/24 09:02 1 mls/min DAILY CRISTIAN Administration Lorazepam 2 mg 12/24/24 21:00 12/25/24 20:19 Lorazepam 1 Mg Tab PO 01/23/25 20:59 2 mg HS CRISTIAN Administration Metoprolol Succinate 12.5 mg 12/24/24 21:00 12/25/24 20:18 Metoprolol Succ 25mg Ext Rel Tab PO 01/23/25 20:59 12.5 mg HS CRISTIAN Administration Polyethylene Glycol 17 gm 12/25/24 06:00 12/26/24 11:52 Polyethylene (Miralax) 17 Gm Pack PO 01/24/25 05:59 Not Given Q6 CRISTIAN Rosuvastatin Calcium 10 mg 12/24/24 21:00 12/25/24 20:17 Rosuvastatin Calcium 10 Mg Tab PO 01/23/25 20:59 10 mg HS CRISTIAN Administration Senna/Docusate Sodium 2 tab 12/24/24 21:00 12/25/24 20:19 Docusate Sodium/Senna 50/8.6mg Tab PO 01/23/25 20:59 2 tab HS CRISTIAN Administration Vitamin D 50 mcg 12/25/24 09:00 12/26/24 07:40 Cholecalciferol 25 Mcg (1000 Units) Tab PO 01/24/25 08:59 50 mcg DAILY CRISTIAN Administration
[2024-12-26 20:14] VITALS: PULSE 54
[2024-12-27 07:26] VITALS: BP 107/66; RESP 18; TEMP 97.5; O2SAT 97
--- NOTE | 2024-12-27 07:37 | Hospitalist Progress Note ---
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 Herrmann. #Lumbar spinal stenosis with neurogenic claudication #S/P L4-L5 lumbar decompression fusion POD #3 EBL: 100 ml pain/wound management per ortho dispo to [facility] per primary #Acute blood loss anemia 2/2 post op losses monitor post operative hgb, was 14.1 pre op stable at 11.7, no need for further labs #post nasal drip continue flonase #CAD with hx of Stent #HTN #HLD on asa, losartan, metoprolol and statin as outpt will hold losartan in perioperative period, resume as soon as able once pressur es are consistently >130SBP chronic, stable DVT ppx: SCDS PCP: Carito Freeman FULL CODE Dispo: per primary Thank you for this consultation. We will follow the patient with you during their hospital stay. You can reach a member of the [facility] Hospitalist Team 21/05 via hospitalist role on tiger text. I spent a total of 30 minutes coordinating, documenting and providing care for this patient excluding time spent in the performance of separately billed services or time spent by another provider/QHP. Admission and Anticipated Discharge Date Admission Date: December 24, 2024 Subjective Patient reports feeling very well today and excited about discharge He denies any acute concerns Physical Exam Constitutional: WD/WN, vitals as above Respiratory: normal respiratory effort, lungs clear to auscultation Cardiovascular: RRR, no murmur, no edema Gastrointestinal (Abdomen): normal bowel sounds, soft, nontender, no hepatosplenomegaly Musculoskeletal: no cyanosis or clubbing, extremities motor strength 5/5 Results & Data Results & Data Vital Signs (Past 12 Hours) Vital Signs Temp Pulse Resp BP BP Pulse Ox O2 Del Method 12/27/24 07:25 36.4 C L 54 L 18 107/66 97 Room Air 12/26/24 20:13 36.5 C 54 L 16 108/55 L 95 Room Air Laboratory Results Short CBC 12/26/24 Range/Units 08:33 WBC 13.62 H (4.8-10.8) K/ul Hgb 11.7 L (14.0-18.0) g/dl Hct 34.3 L (42.0-52.0) % Plt Count 156 (130-400) K/uL Medications Administered Home Medications Medication Instructions Recorded Confirmed Last Taken aspirin 81 mg tablet,delayed 81 mg PO Q2D 10/17/24 12/24/24 12/22/24 21:00 release lorazepam 2 mg tablet (Ativan) 2 mg PO HS 10/17/24 12/24/24 12/23/24 21:00 losartan 25 mg tablet 25 mg PO HS 10/17/24 12/24/24 12/23/24 21:00 metoprolol succinate 25 mg 12.5 mg PO HS 10/17/24 12/24/24 12/23/24 21:00 tablet,extended release 24 hr rosuvastatin 10 mg tablet 10 mg PO HS 10/17/24 12/24/24 12/23/24 21:00 acetaminophen 650 mg 650 mg PO HS PRN Pain 12/19/24 12/24/24 12/23/24 21:00 tablet,extended release (Tylenol Arthritis Pain) cholecalciferol (vitamin D3) 50 50 mcg PO DAILY 12/19/24 12/24/24 12/23/24 21:00 mcg (2,000 unit) capsule (Vitamin D3) denosumab 60 mg/mL subcutaneous 60 mg subcut YEARLY 12/19/24 12/24/24 09/29/24 10:00 syringe (Prolia) vitamin B12 2,500 mcg-folic acid 1 tab PO DAILY 12/19/24 12/24/24 12/23/24 09:00 400 mcg disintegrating tablet Active Medications Generic Name Dose Route Start Last Admin Trade Name Freq PRN Reason Stop Dose Admin Acetaminophen 1,000 mg 12/24/24 15:32 12/26/24 21:39 Acetaminophen 500 Mg Tab PO 01/23/25 15:31 1,000 mg Q8H PRN Administration MILD Pain Scale 1,2,3 & Pre PT Aspirin 81 mg 12/25/24 09:00 12/25/24 08:07 Aspirin 81 Mg Ectab PO 01/24/25 08:59 81 mg Q2D@0900 CRISTIAN Administration Cyanocobalamin 2,500 mcg 12/25/24 09:00 12/26/24 07:40 Cyanocobalamin (B-12) 2,500 Mcg Tablet PO 01/24/25 08:59 2,500 mcg DAILY CRISTIAN Administration Fluticasone Propionate 1 sprays 12/25/24 09:45 12/26/24 07:40 Fluticasone Propionate Na Spr 16 Gm Btl NA 01/24/25 09:44 1 sprays DAILY CRISTIAN Administration Folic Acid 400 mcg 12/25/24 09:00 12/26/24 07:41 Folic Acid 400 Mcg Tab PO 01/24/25 08:59 400 mcg DAILY CRISTIAN Administration Dexamethasone 4 mg/ Syringe 1 mls @ 1 mls/min 12/25/24 09:00 12/26/24 07:40 IV 12/27/24 09:02 1 mls/min DAILY CRISTIAN Administration Lorazepam 2 mg 12/24/24 21:00 12/26/24 21:39 Lorazepam 1 Mg Tab PO 01/23/25 20:59 2 mg HS CRISTIAN Administration Metoprolol Succinate 12.5 mg 12/24/24 21:00 12/26/24 21:40 Metoprolol Succ 25mg Ext Rel Tab PO 01/23/25 20:59 Not Given HS CRISTIAN Polyethylene Glycol 17 gm 12/25/24 06:00 12/27/24 05:54 Polyethylene (Miralax) 17 Gm Pack PO 01/24/25 05:59 Not Given Q6 CRISTIAN Rosuvastatin Calcium 10 mg 12/24/24 21:00 12/26/24 21:39 Rosuvastatin Calcium 10 Mg Tab PO 01/23/25 20:59 10 mg HS CRISTIAN Administration Senna/Docusate Sodium 2 tab 12/24/24 21:00 12/26/24 21:41 Docusate Sodium/Senna 50/8.6mg Tab PO 01/23/25 20:59 Not Given HS CRISTIAN Vitamin D 50 mcg 12/25/24 09:00 12/26/24 07:40 Cholecalciferol 25 Mcg (1000 Units) Tab PO 01/24/25 08:59 50 mcg DAILY CRISTIAN Administration
--- NOTE | 2024-12-27 08:35 | Discharge Summary ---
Date of Service December 27, 2024 Admission HPI Per Admitting Provider This is an 89-year-old male presents chronic persistent back and bilateral leg pain and failing course of care is here for surgical invention. 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 Postop he progressed appropriately. Marked improvement in leg symptoms. JAIME drain decreasing. Good strength testing. Subsidy discharged to rehab. Discharge orders instructions from the chart for further review. Total Time Total Time Spent Total Time Spent (In Minutes): 20 minutes Discharge Plan Discharge Items Patient Disposition: Transfer Inpatient Rehab Fac Reason For Visit: Spinal Stenosis Lumbar with Neurogenic Claudicatio Discharge Diagnosis: Lumbar spondylosis with radiculopathy Activity: As commented below Non-emergency contact: Primary Care Provider Call non-emergency contact if: you have any medication questions Follow-up/Referrals: Carito Freeman M.D. [Primary Care Provider] - (Please call the office to make a follow up appointment. ) Diet: Regular Addtl Attending Provider Instructions: ACTIVITY RECOMMENDATIONS: SELF CARE INSTRUCTIONS AFTER THORACIC/LUMBAR FUSIONS 1. You may walk to your tolerance. It is good exercise for your legs and back. Expect some back and intermittent leg aches and pains. 2. You may perform "counter-top" level activities (make a sandwich, elver with a project, etc.). 3. No bending or lifting of more than 10 pounds or back twisting of any nature (roll like a log when turning in bed). 4. You may ride in a car for 20-30 minutes at a time. No driving until after your first visit with your doctor. 5. Frequent changes of position and restricting sitting to 30 minutes at a time will help limit the amount of back spasms and stiffness you may experience. 6. You may discontinue the use of ambulatory aids (cane, crutches, etc.) once your strength and confidence allow. 7. You may dextrine mixer the shower and let water strike your incision when you arrive home at least once daily. Do not take a tub bath, sit in a hot tub or go into a swimming pool until after your first recheck in the office. 8. You may resume previous diet. SPECIAL CARE INSTRUCTIONS: VERY IMPORTANT TO READ AND REVIEW A. Your surgical incision has been closed with a cosmetic suture under the skin that will dissolve in about 6 weeks. In 14 days, you can use a pair of clean scissors and cut the suture that is left outside of the skin at the ends of your incision. 1. The small skin tapes can be removed 7 days after surgery if they have not fallen off by that point. 2. You may keep the wound open to air as much as possible to promote healing after post-op day number 5 unless told otherwise by your doctor. 3. If you think the wound looks like it is becoming infected (redness or worsening drainage) and/or you are experiencing fever, chill or worsening back pain and muscle spasms, contact the office so that we may evaluate you as soon as possible. B. Complications are uncommon, but please contact us if you have any signs or symptoms of: 1. wound infection (fever higher than 102.5 degrees F, redness, separation of wound, drainage, or increasing pain from the incision) 2. blood clots in legs (pain, swelling, redness and warmth in legs) 3. urinary tract infection (fever higher than 102.5 degrees F, burning upon urination or increased frequency of urination) 4. nerve problems (inability to walk on your toes or heels, numbness, loss of bowel or bladder control) 5. any other symptoms that concern you C. Please call the office at if you have any concerns or questions about your operation or recovery. D. No smoking! Smoking drastically decreases the chance of a solid fusion. E. Do not take any anti-inflammatory medications (Indocin, Advil, Motrin, Aspirin, Naprosyn, etc.) as these may inhibit the chance of a solid fusion. Tylenol is okay to take for pain. MANAGING PAIN AFTER SPINAL SURGERY 1. Narcotic medication is intended for short-term use and will be provided for surgical pain. Surgical pain usually lasts for a period of 4-6 weeks. Narcotic medication includes Percocet, Vicodin, Darvocet, Tylenol #3 or Lortab. 2. Longer-term pain is more appropriately treated with non-narcotic medication such as Tylenol ES. 3. Muscle spasm is not appropriately treated with narcotics. Muscle relaxers such as Soma, Flexeril or Skelaxin can be used along with Tylenol ES. 4. Remember that we all live with some "aches and pains". This is not unusual or uncommon after an injury or as we get older. a. Back pain is expected and may include muscle spasms for 4 to 6 weeks after surgery. The pain should gradually improve. If the pain worsens for no apparent reason, please contact the office. b. Intermittent leg pain may also be experienced and should not be concerned about unless it worsens for no apparent reason. If so, please contact the office. 5. We will provide appropriate medication within the normal guidelines of their prescribed use. We will also be very cautious and aware of potential abuse and extended duration of patients' medication needs. a. Pain medications are for your comfort and to assist with sleep and rest so that the tissue can heal. They are not provided in order to return to normal activity and should not be used through the day. To do so or worsening pain at night can result from ongoing tissue damage and development of tolerance to the prescribed medicine. 6. Please allow 2-3 days to process refills. Prescriptions will not be mailed but must be picked up at the office. FOLLOW UP VISIT: Keep your scheduled follow-up appointment. Any questions, please call the office at . Pending Studies at Discharge: No Stand-Alone Forms: My [employer], Smoking Cessation Skilled Items Patient informed of condition?: Yes DNR: No Discharge Level of Care: Acute rehab Communicable Disease: No Discharge Prognosis: Improving Lines: None Urinary Catheter: No Medications and DC Order Prescriptions: New fluticasone propionate 50 mcg/actuation [place],Suspension 1 spray NA DAILY Qty: 0 0RF Continued aspirin [Aspir-81] 81 mg Tablet,Delayed Release (Dr/Ec) 81 mg PO Q2D lorazepam [Ativan] 2 mg Tablet 2 mg PO HS metoprolol succinate 25 mg Tablet Extended Release 24 Hr 12.5 mg PO HS rosuvastatin 10 mg Tablet 10 mg PO HS cholecalciferol (vitamin D3) [Vitamin D3] 50 mcg (2,000 unit) Capsule 50 mcg PO DAILY Prolia 60 mg/mL Syringe 60 mg SUBCUT YEARLY Rx Instructions: Every 6 Months vitamin [id number] acid 2,500-400 mcg Tablet,Disintegrating 1 tab PO DAILY acetaminophen [Tylenol Arthritis Pain] 650 mg Tablet Extended Release 650 mg PO HS PRN (Reason: Pain) Held losartan 25 mg Tablet 25 mg PO HS Discharge Orders: Discharge Order (Routine); Ordered 12/27/24 Ordered By: Frederic Herrmann Admission Data Admit Date/Time: 12/24/24 13:59 Attending Provider: Frederic Herrmann Admit Provider: Frederic Herrmann Primary Care Provider: Carito Freeman Other Providers: Sun Dorsey
== END 2024-12-27 11:22 | DRG 402 ==
LOC: ASU 09:16 → 3W 13:59